=== PATIENT | female | born 1980 | race Caucasian/White ===

== ENCOUNTER 2019-11-04 14:51 | Emergency (ER) | payer MEDICAID, OTHER ==
[~2019-11-04] VITALS: Ht 157.5 cm; Wt 63.5 kg
[2019-11-04 17:59] VITALS: BP 124/80
[2019-11-04] MEDS ORDERED: cefTRIAXone W LIDOCAINE 1 GM IM IM ONE (18:30)
[2019-11-04] MEDS ORDERED: LIDOCAINE 2% (LOCAL ANESTH.) PF 5ml SDV ONE (18:39)
[2019-11-04] MEDS ORDERED: cefTRIAXone SOD 1,000 MG VL ONE (18:39)
[2019-11-04] MEDS ORDERED: ACETAMINOPHEN 500 MG TAB PO ONE ×2 (18:45)
== END 2019-11-04 18:57 | disposition home or self-care (01) ==
LOC: ER 14:51
DX: J01.40 Acute pansinusitis, unspecified (principal); J31.0 Chronic rhinitis; J34.2 Deviated nasal septum; N39.0 Urinary tract infection, site not specified; M26.69 Other specified disorders of temporomandibular joint; F17.210 Nicotine dependence, cigarettes, uncomplicated
CPT/HCPCS: 70486; 71045; 81002; 81025; 87070; 87804; 87880; 96372; 99285; J0696; J2001

== ENCOUNTER 2019-12-20 13:10 | Inpatient (IN) | payer MEDICAID ==
[~2019-12-20] VITALS: Ht 160 cm; Wt 86.2 kg
[2019-12-20] MEDS ORDERED: SODIUM CHLORIDE 0.9% 1,000 ML IVB ONE (13:25)
[2019-12-20] MEDS ORDERED: ACETAMINOPHEN 325 MG TAB PO ONE (13:30)
[2019-12-20 14:15] LABS: Basophils # (auto) 0 10 ^3/uL (0-0.2); Basophils % (auto) 0.1 % (0.0-2.0); Eosinophils # (auto) 0 10 ^3/uL (0-0.8); Eosinophils % (auto) 0.1 % (0.0-7.0); Hematocrit 39.5 % (36.0-46.0); Hemoglobin 13.2 g/dL (12.2-16.2); Lymphocytes % (auto) 3.8 % (10.0-50.0); Mean Corpuscular Hemoglobin 32.2 pg (28.0-32.0); Mean Corpuscular Hgb Conc. 33.4 g/dL (32.0-36.0); Mean Corpuscular Volume 96.3 fL (80.0-100.0); Monocytes # (auto) 1.8 10 ^3/uL (0-1.3); Monocytes % (auto) 7.2 % (0.0-12.0); Neutrophils # (auto) 22.9 10 ^3/uL (1.6-8.6); Neutrophils % (auto) 88.8 % (37.0-80.0); Nucleated Red Blood Cells % 0.1 %; Platelet Count (auto) 229 10^3/uL (140-450); Red Cell Distribution Width 13.7 % (11.8-14.3); White Blood Cell 25.8 10^3/uL (4.4-10.8)
[2019-12-20 14:27] LABS: Urine Bacteria MANY /hpf (None Seen); Urine Blood TRACE /uL (Negative); Urine Specific Gravity 1.011 (1.001-1.035); Urine WBC 110 /hpf (0 - 5); Urine WBC Clumps PRESENT /hpf (None Seen)
[2019-12-20 14:37] LABS: Albumin 3.4 g/dL (3.4-5.0); BUN/Creatinine Ratio 9.4; Calcium 8.4 mg/dL (8.5-10.1); Magnesium 1.6 mg/dL (1.6-2.6); Potassium 3.4 mmol/L (3.5-5.1)
[2019-12-20 14:40] LABS: Bilirubin, Total 1.7 mg/dL (0.2-1.0); Total Protein 8.3 g/dL (6.4-8.2)
[2019-12-20 14:44] LABS: INR 1.05 (0.9-1.15); Partial Thromboplastin Time 30.3 sec (23.64-32.05)
[2019-12-20] MEDS ORDERED: AZITHROMYCIN 500MG/ 250ML 250 ML IV ONE (15:30)
[2019-12-20] MEDS ORDERED: LORazepam 2MG/ML-1ML VIAL IV PRN (16:00)
[2019-12-20] MEDS ORDERED: MEROPENEM 500MG IVPB 50 ML IV ONE (16:00)
[2019-12-20] MEDS ORDERED: NITROGLYCERIN 0.4 MG SL TAB SL PRN ×2 (16:00→16:30)
[2019-12-20] MEDS ORDERED: MORPHINE SULF INJ 2 MG/ML SYRINGE 1ML IV PRN ×4 (16:00→16:45)
[2019-12-20] MEDS ORDERED: MORPHINE SULFATE 4 MG/ML SYR/VIAL IV PRN (16:00)
[2019-12-20] MEDS ORDERED: AZTREONAM 1GM INJ 1 GM in D5W 5% 50 ML IV ONE (16:00)
[2019-12-20] MEDS ORDERED: VANCOMYCIN PER PHARMACY 0 MG IV SCH (16:15)
[2019-12-20] MEDS ORDERED: ALUM & MAG HYDROX-SIMETH LIQ(MAALOX) 30 ML PO PRN (16:30)
[2019-12-20] MEDS ORDERED: METOCLOPRAMIDE HCL 5MG/ml INJ 2ml VIAL IV PRN (16:30)
[2019-12-20] MEDS ORDERED: DOCUSATE SOD 100 MG CAP PO PRN (16:30)
[2019-12-20] MEDS: SODIUM CHLORIDE 0.9% 1,000 ML IV SCH ×2 (17:04→21:21)
[2019-12-20] MEDS ORDERED: SODIUM CHLORIDE 0.9% 1,000 ML IV ONE (18:00)
[2019-12-20] MEDS ORDERED: HYDROCORTISONE SOD SUCC 100 MG/2ML INJ VIAL IV ONE (18:15)
[2019-12-20] MEDS ORDERED: VANCOMYCIN 1GM/250ML 250 ML IV ONE (19:00)
[2019-12-20] MEDS ORDERED: SODIUM CHLORIDE 0.9% 2,000 ML IV ONE (19:15)
[2019-12-20] MEDS: HYDROcodone-ACET 5/325MG TAB PO PRN (19:45)
--- NOTE | 2019-12-20 20:39 | NUR ---
Telemetry admit from ER LUISASCOOTER BRICENO admitted to Telemetry unit. SBAR have not been received. Patient oriented to Ori garnett RN, [facility], 284 room, b bed, and unit policies regarding patient care and visiting hours. Patient now on continuous telemetry monitoring, tele box # [id number] and telemetry reading on arrival to unit is sinus rhythm. Patient placed on bedside oxygen, weighed by bedscale and encouraged to call if they need something. All questions and concerns addressed, patient verbalized understanding. Addendum: 12/21/19 at 0357 by Ori Kebede RN belonging list completed and in chart.
[2019-12-20 21:00] VITALS: BP 99/69
[2019-12-20] MEDS ORDERED: OLAN20TA13 PO (21:20)
[2019-12-20] MEDS ORDERED: GABA100C9 PO (21:20)
[2019-12-20] MEDS: FAMOTIDINE (10MG/ML) 2ML VL IV SCH (21:22)
[2019-12-20] MEDS: MEROPENEM 1GM IVPB 100 ML IV SCH (21:23)
[2019-12-20] MEDS ORDERED: AZTREONAM 1GM INJ 1 GM in D5W 5% 50 ML IV SCH (22:00)
[2019-12-21] MEDS ORDERED: LORazepam 2MG/ML-1ML VIAL IV PRN (00:15)
[2019-12-21] MEDS: SODIUM CHLORIDE 0.9% 1,000 ML IV SCH ×6 (00:54→21:03)
[2019-12-21 05:00] VITALS: BP 96/71
[2019-12-21] MEDS: HYDROCORTISONE SOD SUCC 100 MG/2ML INJ VIAL IV SCH ×3 (05:07→18:22)
[2019-12-21 06:03] LABS: Basophils # (auto) 0 10 ^3/uL (0-0.2); Basophils % (auto) 0.2 % (0.0-2.0); Eosinophils # (auto) 0 10 ^3/uL (0-0.8); Eosinophils % (auto) 0.1 % (0.0-7.0); Hematocrit 31.5 % (36.0-46.0); Hemoglobin 10.7 g/dL (12.2-16.2); Lymphocytes # (auto) 0.9 10 ^3/uL (0.4-5.4); Lymphocytes % (auto) 4.7 % (10.0-50.0); Mean Corpuscular Hemoglobin 33.1 pg (28.0-32.0); Mean Corpuscular Volume 97.4 fL (80.0-100.0); Monocytes # (auto) 1.8 10 ^3/uL (0-1.3); Monocytes % (auto) 9.9 % (0.0-12.0); Neutrophils # (auto) 15.8 10 ^3/uL (1.6-8.6); Neutrophils % (auto) 85.1 % (37.0-80.0); Platelet Count (auto) 159 10^3/uL (140-450); Red Blood Cells 3.23 10^6/uL (4.0-5.20); Red Cell Distribution Width 13.5 % (11.8-14.3); White Blood Cell 18.5 10^3/uL (4.4-10.8)
[2019-12-21 06:18] LABS: Albumin 2.3 g/dL (3.4-5.0); Calcium 6.4 mg/dL (8.5-10.1); Potassium 4.2 mmol/L (3.5-5.1)
[2019-12-21 06:22] LABS: BUN/Creatinine Ratio 16.7; Bilirubin, Total 0.7 mg/dL (0.2-1.0); Magnesium 1.5 mg/dL (1.6-2.6); Total Protein 5.3 g/dL (6.4-8.2)
[2019-12-21 06:30] LABS: INR 1.11 (0.9-1.15); Partial Thromboplastin Time 33.7 sec (23.64-32.05)
[2019-12-21 06:38] VITALS: BP 100/69
--- NOTE | 2019-12-21 07:30 | NUR ---
OPENING SHIFT NOTES Assumed care of patient from overnight babysitter RN. Patient is alert and orientedx4, no signs of distress noted, patient denies pain. She was updated on the plan of care and verbalized understanding. Patient is on oxygen at 2L/min via nasal cannula, saturation is 97%. Bedside commode noted, patient states that she "feels weak when she walks too far". Patient was encouraged to call for assistance when she gets up to commode and she verbalized understanding. Bed is locked, in the lowest position, side rail up x2 and call light is in reach.
[2019-12-21 09:00] VITALS: BP 112/72
--- NOTE | 2019-12-21 09:30 | NUR ---
PATIENT TAKEN TO VQ SCAN Accompanied by tech, no signs of distress on departure.
--- NOTE | 2019-12-21 09:53 | NUR ---
PATIENT BACK FROM VQ SCAN No signs of distress noted. Patient placed back on Oxygen at 2L/min via nasal cannula, saturation 96%.
[2019-12-21] MEDS ORDERED: HYDROCORTISONE SOD SUCC 100 MG/2ML INJ VIAL IV SCH (10:00)
[2019-12-21] MEDS: MEROPENEM 1GM IVPB 100 ML IV SCH ×3 (10:06→22:21)
[2019-12-21] MEDS: ENOXAPARIN SOD 40 MG/0.4 ML SYRINGE SC SCH (10:06)
[2019-12-21] MEDS: FAMOTIDINE (10MG/ML) 2ML VL IV SCH (10:06)
[2019-12-21 12:38] VITALS: BP 127/60
--- NOTE | 2019-12-21 12:42 | NUR ---
JURGEN AT BEDSIDE Updated on patient status, plan of care discussed with patient and she verbalized understanding. No new orders received.
[2019-12-21] MEDS: KETOROLAC TROMETH 30 MG/ML 1ML VIAL IV PRN ×2 (13:05→22:22)
[2019-12-21] MEDS: VANCOMYCIN 750mg/250ml 250 ML IV SCH (13:05)
[2019-12-21 16:53] VITALS: BP 102/74
--- NOTE | 2019-12-21 20:00 | NUR ---
Opening Shift Note Assumed care of patient. Awake, alert and oriented x4. No S/S of distress/SOB or pain. Instructed on POC and to call for assist PRN. Bed locked, in lowest position, call light within reach, side rails up x2. Will continue to monitor for changes Q1hr and PRN.
[2019-12-21 23:04] VITALS: BP 119/79
[2019-12-22] MEDS: HYDROCORTISONE SOD SUCC 100 MG/2ML INJ VIAL IV SCH ×3 (00:03→14:22)
[2019-12-22] MEDS: LORazepam 0.5 MG TAB PO PRN (00:04)
[2019-12-22] MEDS: SODIUM CHLORIDE 0.9% 1,000 ML IV SCH ×3 (03:01→14:23)
[2019-12-22 05:16] VITALS: BP 116/85
[2019-12-22] MEDS: MEROPENEM 1GM IVPB 100 ML IV SCH ×3 (05:48→21:49)
--- NOTE | 2019-12-22 07:30 | NUR ---
Opening Shift Note Assumed care of patient, awake and alert. No S/S of distress/SOB or pain. Instructed on POC and to call for assist PRN, will continue to monitor for changes Q1hr and PRN.
[2019-12-22] MEDS: VANCOMYCIN 750mg/250ml 250 ML IV SCH (08:14)
[2019-12-22 08:18] LABS: Basophils # (auto) 0 10 ^3/uL (0-0.2); Basophils % (auto) 0.2 % (0.0-2.0); Eosinophils # (auto) 0 10 ^3/uL (0-0.8); Hematocrit 34.2 % (36.0-46.0); Hemoglobin 11.3 g/dL (12.2-16.2); Lymphocytes % (auto) 4.7 % (10.0-50.0); Mean Corpuscular Hemoglobin 31.8 pg (28.0-32.0); Mean Corpuscular Hgb Conc. 33.1 g/dL (32.0-36.0); Mean Corpuscular Volume 96.1 fL (80.0-100.0); Monocytes % (auto) 4.7 % (0.0-12.0); Neutrophils # (auto) 19.3 10 ^3/uL (1.6-8.6); Neutrophils % (auto) 90.4 % (37.0-80.0); Platelet Count (auto) 257 10^3/uL (140-450); Red Blood Cells 3.56 10^6/uL (4.0-5.20); Red Cell Distribution Width 13.2 % (11.8-14.3); White Blood Cell 21.4 10^3/uL (4.4-10.8)
[2019-12-22 08:36] LABS: Potassium 3.2 mmol/L (3.5-5.1)
[2019-12-22 08:43] LABS: Albumin 2.1 g/dL (3.4-5.0); BUN/Creatinine Ratio 22.4; Bilirubin, Total 0.3 mg/dL (0.2-1.0); Calcium 6.6 mg/dL (8.5-10.1); Total Protein 5.9 g/dL (6.4-8.2)
[2019-12-22 09:00] VITALS: BP 109/76
[2019-12-22] MEDS: FAMOTIDINE (10MG/ML) 2ML VL IV SCH (10:33)
[2019-12-22] MEDS: ENOXAPARIN SOD 40 MG/0.4 ML SYRINGE SC SCH (10:34)
--- NOTE | 2019-12-22 11:00 | NUR ---
IV insertion IV access obtained, via clean sterile technique by inserting 20 gauge catheter at right wrist after 2 attempts. IV secured properly. No trauma to site. Patient tolerated procedure well.
[2019-12-22] MEDS: HYDROcodone-ACET 5/325MG TAB PO PRN (11:33)
[2019-12-22 12:45] VITALS: BP 117/84
[2019-12-22] MEDS ORDERED: POTASSIUM CHLORIDE 40 MEQ, LIDOCAINE 1% (LOCAL ANESTH.) 4 ML in SODIUM CHL 0.9% 100 ML IV ONE (12:45)
--- NOTE | 2019-12-22 13:00 | NUR ---
Dr. Corina Sampson in to see patient as primary MD.
--- NOTE | 2019-12-22 14:05 | NUR ---
Renal US completed.
--- NOTE | 2019-12-22 16:06 | NUR ---
K-rider not available. Pharmacy informed, will mix and send up.
--- NOTE | 2019-12-22 16:36 | NUR ---
Patient states she does not want to take the Solucortef as she does not like the way it makes her feel. Page placed to Dr. Corina Sampson.
[2019-12-22 17:00] VITALS: BP 119/86
[2019-12-22 22:00] VITALS: BP 111/72
[2019-12-23] MEDS: VANCOMYCIN 750mg/250ml 250 ML IV SCH (00:41)
--- NOTE | 2019-12-23 03:08 | NUR ---
IV insertion IV access obtained, via clean sterile technique by inserting 20 gauge catheter at left hand after 2 attempts. IV secured properly. No trauma to site. Patient tolerated procedure well.
[2019-12-23 05:00] VITALS: BP 114/75
[2019-12-23] MEDS: MEROPENEM 1GM IVPB 100 ML IV SCH ×3 (05:40→21:37)
[2019-12-23] MEDS: SODIUM CHLORIDE 0.9% 1,000 ML IV SCH ×4 (05:40→20:00)
[2019-12-23] MEDS: LORazepam 0.5 MG TAB PO PRN (06:04)
--- NOTE | 2019-12-23 06:04 | NUR ---
Nursing Note Patient was starting to cough and having a hard time catching her breath. Sat pt up and placed oxygen at 2L and advised to take some slow deep breaths. Assessed O2 saturation at 96%. Patient asked for Ativan and it was given as ordered. Patients respirations improved and the coughing resolved. Will let day shift RN know of the coughing and to monitor for worsening symptoms. Will continue to monitor patient.
--- NOTE | 2019-12-23 07:12 | NUR ---
Closing Shift Note Endorsed care to day shift RN. No S/S of distress, SOB or pain noted. Pt is sitting up in bed with her nasal cannula on at 2L. Day shift RN was made aware of patients coughing
[2019-12-23 09:00] VITALS: BP 125/79
[2019-12-23 10:07] LABS: Basophils # (auto) 0 10 ^3/uL (0-0.2); Basophils % (auto) 0.2 % (0.0-2.0); Eosinophils # (auto) 0.1 10 ^3/uL (0-0.8); Eosinophils % (auto) 0.4 % (0.0-7.0); Hematocrit 33.1 % (36.0-46.0); Hemoglobin 11.1 g/dL (12.2-16.2); Lymphocytes # (auto) 1.9 10 ^3/uL (0.4-5.4); Mean Corpuscular Hemoglobin 31.8 pg (28.0-32.0); Mean Corpuscular Hgb Conc. 33.5 g/dL (32.0-36.0); Mean Corpuscular Volume 94.7 fL (80.0-100.0); Monocytes # (auto) 0.9 10 ^3/uL (0-1.3); Monocytes % (auto) 6.1 % (0.0-12.0); Neutrophils # (auto) 11.6 10 ^3/uL (1.6-8.6); Neutrophils % (auto) 80.3 % (37.0-80.0); Platelet Count (auto) 293 10^3/uL (140-450); Red Blood Cells 3.49 10^6/uL (4.0-5.20); Red Cell Distribution Width 13.6 % (11.8-14.3); White Blood Cell 14.4 10^3/uL (4.4-10.8)
[2019-12-23] MEDS: FAMOTIDINE (10MG/ML) 2ML VL IV SCH (10:15)
[2019-12-23] MEDS: ENOXAPARIN SOD 40 MG/0.4 ML SYRINGE SC SCH (10:15)
[2019-12-23 10:36] LABS: BUN/Creatinine Ratio 13.7; Calcium 7.2 mg/dL (8.5-10.1)
[2019-12-23 13:00] VITALS: BP 128/83
[2019-12-23] MEDS ORDERED: POTASSIUM CHLORIDE 40 MEQ, LIDOCAINE 1% (LOCAL ANESTH.) 4 ML in SODIUM CHL 0.9% 100 ML IV ONE (13:00)
--- NOTE | 2019-12-23 13:33 | NUR ---
Dr. Corina Sampson in to see patient as primary MD.
[2019-12-23 17:00] VITALS: BP 135/99
--- NOTE | 2019-12-23 19:50 | NUR ---
Vancomycin trough not available at this time, per lab trough should be ready in "about five minutes" Will have Vancomyacin administration time adjusted by pharmacy.
[2019-12-23] MEDS ORDERED: VANCOMYCIN 750mg/250ml 250 ML IV SCH (20:00)
--- NOTE | 2019-12-23 20:00 | NUR ---
Patient refusing all fluids and antibiotics at this time, states she "feels much better" and "would like to talk to the doctor tomorrow if I need to be on them". Patient made aware of MD's orders and risks, benefits, and side effects of antibiotic administration. Patient verbalized understanding, continuing to refuse. Will continue to monitor.
[2019-12-23] MEDS: POTASSIUM CHL 20 Meq TABLET PO SCH (21:38)
[2019-12-23 23:38] VITALS: BP 122/83
[2019-12-24] MEDS: MEROPENEM 1GM IVPB 100 ML IV SCH ×3 (05:12→21:28)
[2019-12-24 05:45] VITALS: BP 133/97
[2019-12-24 06:03] LABS: Hematocrit 33.3 % (36.0-46.0); Hemoglobin 11.4 g/dL (12.2-16.2); Mean Corpuscular Hemoglobin 32.1 pg (28.0-32.0); Mean Corpuscular Hgb Conc. 34.1 g/dL (32.0-36.0); Mean Corpuscular Volume 94.2 fL (80.0-100.0); Platelet Count (auto) 312 10^3/uL (140-450); Red Blood Cells 3.54 10^6/uL (4.0-5.20); Red Cell Distribution Width 13.7 % (11.8-14.3); White Blood Cell 12.1 10^3/uL (4.4-10.8)
[2019-12-24 06:24] LABS: Potassium 3.4 mmol/L (3.5-5.1)
[2019-12-24 06:35] LABS: Albumin 2.3 g/dL (3.4-5.0); Bilirubin, Total 0.6 mg/dL (0.2-1.0); Calcium 7.6 mg/dL (8.5-10.1); Total Protein 6.1 g/dL (6.4-8.2)
--- NOTE | 2019-12-24 06:36 | NUR ---
Closing Note Patient lying in bed, eyes closed, respirations even and unlabored, appears asleep. Patient awakens to name and touch. No s/s of distress. Bed in lowest locked position, side rails up x2, call light within reach. Will endorse care to dayshift RN.
[2019-12-24 06:59] LABS: Band Neutrophils % (manual) 0; Basophils % (manual) 0 (0.0-2.0); Blast Cells 0; Promyelocytes % 0; Reactive Lymphocytes 0
--- NOTE | 2019-12-24 07:30 | NUR ---
Opening Shift Note Assumed care of patient, awake and alert, sitting up in chair at bedside. No S/S of distress/SOB or pain. Updated on POC and instructed to call for assistance PRN. Bed locked in lowest position, side rails up x2, call light within reach. Will continue to monitor for changes Q1hr and PRN.
[2019-12-24 07:39] LABS: Eosinophils % (manual) 3 (0-7); Lymphocytes % (manual) 16 (10.0-50.0); Metamyelocytes % 1; Monocytes % (manual) 14 (0-12); Myelocytes % 5
[2019-12-24 09:00] VITALS: BP 126/80
[2019-12-24] MEDS: FAMOTIDINE (10MG/ML) 2ML VL IV SCH (09:17)
[2019-12-24] MEDS: ENOXAPARIN SOD 40 MG/0.4 ML SYRINGE SC SCH (09:17)
[2019-12-24] MEDS: POTASSIUM CHL 20 Meq TABLET PO SCH ×2 (09:17→21:28)
[2019-12-24] MEDS ORDERED: POTASSIUM CHLORIDE 20 MEQ, LIDOCAINE 1% (LOCAL ANESTH.) 2 ML in SODIUM CHL 0.9% 100 ML IV ONE (09:30)
[2019-12-24 13:00] VITALS: BP 135/91
[2019-12-24] MEDS: SODIUM CHLORIDE 0.9% 1,000 ML IV SCH (13:59)
[2019-12-24 16:45] VITALS: BP 127/92
[2019-12-24] MEDS: HYDROcodone-ACET 5/325MG TAB PO PRN (18:51)
--- NOTE | 2019-12-24 18:51 | NUR ---
Closing Shift Note No S/S of distress or SOB. Patient is sitting up in bed, respirations are even and unlabored. Will endorse care to noc shift RN
--- NOTE | 2019-12-24 19:30 | NUR ---
OPENING SHIFT NOTE: ASSUMED CARE OF PATIENT. PATIENT IS AWAKE, ALERT AND ORIENTED X 4. ON S/S OF SOB OR DISTRESS AND PATIENT DENIES PAIN. BED IS IN LOWEST LOCKED POSITION WITH TWO SIDE RAILS RAISED AND CALL SOLIS WITHIN REACH. INSTRUCTED ON POC AND ENCOURAGED TO USE CALL SOLIS FOR ASSISTANCE, ALL QUESTIONS AND CONCERNS ADDRESSED, PATIENT VERBALIZES UNDERSTANDING. WILL CONTINUE TO MONITOR Q1 HR AND PRN.
[2019-12-24 20:00] VITALS: BP 111/75
[2019-12-24 21:00] VITALS: BP 111/75
[2019-12-25] MEDS: SODIUM CHLORIDE 0.9% 1,000 ML IV SCH ×2 (01:00→10:41)
--- NOTE | 2019-12-25 01:00 | NUR ---
Fluids stopped. Patient requests her fluids be disconnected because she has to urinate too much and can't sleep. Education given regarding the importance of the ordered fluids. Will continue to monitor pt.
[2019-12-25 04:30] VITALS: BP 100/66
[2019-12-25] MEDS: MEROPENEM 1GM IVPB 100 ML IV SCH (05:49)
[2019-12-25 05:52] LABS: Hematocrit 33.6 % (36.0-46.0); Hemoglobin 11.5 g/dL (12.2-16.2); Mean Corpuscular Hgb Conc. 34.3 g/dL (32.0-36.0); Mean Corpuscular Volume 93.4 fL (80.0-100.0); Platelet Count (auto) 310 10^3/uL (140-450); Red Cell Distribution Width 13.8 % (11.8-14.3); White Blood Cell 10.9 10^3/uL (4.4-10.8)
[2019-12-25 06:19] LABS: Calcium 7.8 mg/dL (8.5-10.1); Potassium 3.4 mmol/L (3.5-5.1)
[2019-12-25 06:47] LABS: Band Neutrophils % (manual) 0; Basophils % (manual) 0 (0.0-2.0); Blast Cells 0; Promyelocytes % 0; Reactive Lymphocytes 0
[2019-12-25 07:11] LABS: Eosinophils % (manual) 6 (0-7); Lymphocytes % (manual) 19 (10.0-50.0); Metamyelocytes % 1; Monocytes % (manual) 14 (0-12); Myelocytes % 1
--- NOTE | 2019-12-25 07:25 | NUR ---
Opening Shift Note Assumed care of patient, awake and alert, sitting up in bed. No S/S of distress/SOB or pain. Updated on POC and instructed to call for assistance PRN. Bed locked in lowest position, side rails up x2, call light within reach. Will continue to monitor for changes Q1hr and PRN.
[2019-12-25 09:00] VITALS: BP 138/89
[2019-12-25] MEDS ORDERED: POTASSIUM CHL 20 Meq TABLET PO ONE (09:45)
[2019-12-25] MEDS: FAMOTIDINE (10MG/ML) 2ML VL IV SCH (09:50)
[2019-12-25] MEDS: ENOXAPARIN SOD 40 MG/0.4 ML SYRINGE SC SCH (09:50)
[2019-12-25] MEDS: POTASSIUM CHL 20 Meq TABLET PO SCH (09:50)
[2019-12-25 12:47] VITALS: BP 129/98
[2019-12-25 12:52] VITALS: BP 129/98
[2019-12-25] MEDS ORDERED: cefTRIAXone 1GM/50ML D5W 50 ML IV ONE (15:00)
--- NOTE | 2019-12-25 15:30 | NUR ---
Discharge home Discharge instructions given as ordered. Encourage to follow up with PMD as instructed. All questions and concerns addressed. Patient verbalized understanding. Medication reconciliation form completed and copy given to patient. IV removed with catheter intact, pressure dressing applied. Telemetry unit returned to ICU. Patient taken to vehicle via ambulation with all personal belongings, accompanied by staff. No distress noted at time of departure.
[2019-12-26] MEDS ORDERED: cefTRIAXone 1GM/50ML D5W 50 ML IV SCH (09:00)
== END 2019-12-25 15:30 | disposition home or self-care (01) | DRG 720 ==
LOC: ER 13:10 → EDBD 13:10 → TELE 13:11 → TELE-WESTW 20:39
PROVIDERS: ADMIT Hospitalist; ATTEND Internal Medicine
DX: A41.9 Sepsis, unspecified organism (principal); N17.0 Acute kidney failure with tubular necrosis; R65.21 Severe sepsis with septic shock; E44.0 Moderate protein-calorie malnutrition; N18.4 Chronic kidney disease, stage 4 (severe); N30.00 Acute cystitis without hematuria; J20.8 Acute bronchitis due to other specified organisms; Z03.818 Encounter for observation for suspected exposure to other biological agents ruled out; N10 Acute pyelonephritis; E87.6 Hypokalemia; F41.9 Anxiety disorder, unspecified; E86.0 Dehydration; Z68.33 Body mass index [BMI] 33.0-33.9, adult; F10.10 Alcohol abuse, uncomplicated; Y90.9 Presence of alcohol in blood, level not specified; F15.10 Other stimulant abuse, uncomplicated; Z98.51 Tubal ligation status; Z88.0 Allergy status to penicillin; Z88.1 Allergy status to other antibiotic agents; B96.20 Unspecified Escherichia coli [E. coli] as the cause of diseases classified elsewhere
CPT/HCPCS: 36415; 71045; 76775; 78582; 80048; 80053; 80202; 81001; 81025; 83605; 83735; 84100; 84484; 84702; 85007; 85025; 85027; 85379; 85610; 85730; 87040; 87070; 87086; 87088; 87186; 87804; 87880; G0378; J0696; J1885; J2001; J2185; J3490; J7060

== ENCOUNTER 2021-05-25 20:02 | Emergency (ER) | payer MEDICAID ==
[~2021-05-25] VITALS: Ht 157.5 cm; Wt 68.0 kg
[~2021-05-25 20:02] MED LIST: GABA100C9 PO; OLAN20TA PO
[2021-05-25 22:00] VITALS: BP 107/74
[2021-05-25 22:09] LABS: Basophils # (auto) 0.1 10 ^3/uL (0-0.2); Basophils % (auto) 1.3 % (0.0-2.0); Eosinophils # (auto) 0.1 10 ^3/uL (0-0.8); Eosinophils % (auto) 1.2 % (0.0-7.0); Hematocrit 37.4 % (36.0-46.0); Lymphocytes # (auto) 1.8 10 ^3/uL (0.4-5.4); Lymphocytes % (auto) 23.5 % (10.0-50.0); Mean Corpuscular Hemoglobin 32.6 pg (28.0-32.0); Mean Corpuscular Hgb Conc. 34.7 g/dL (32.0-36.0); Mean Corpuscular Volume 93.8 fL (80.0-100.0); Monocytes # (auto) 0.8 10 ^3/uL (0-1.3); Monocytes % (auto) 11.2 % (0.0-12.0); Neutrophils # (auto) 4.7 10 ^3/uL (1.6-8.6); Neutrophils % (auto) 62.8 % (37.0-80.0); Nucleated Red Blood Cells % 0.1 %; Red Blood Cells 3.98 10^6/uL (4.0-5.20); Red Cell Distribution Width 12.5 % (11.8-14.3); White Blood Cell 7.5 10^3/uL (4.4-10.8)
[2021-05-25 22:27] LABS: Albumin 2.9 g/dL (3.4-5.0); Calcium 7.8 mg/dL (8.5-10.1)
[2021-05-25 22:36] LABS: BUN/Creatinine Ratio 12.9; Bilirubin, Total 0.6 mg/dL (0.2-1.0); CRP High Sensitivity 3.98 mg/dL (< 0.3); Total Protein 7.2 g/dL (6.4-8.2)
[2021-05-25] MEDS ORDERED: METOCLOPRAMIDE HCL 5MG/ml INJ 2ml VIAL IV ONE (23:00)
[2021-05-25] MEDS ORDERED: DexAMETHasone SOD PHOS 10MG/1ML VIAL INJ IV ONE (23:00)
== END 2021-05-26 03:31 | disposition home or self-care (01) ==
LOC: EDUNIT# 20:02 → ER 20:02
DX: R06.02 Shortness of breath (principal); F41.9 Anxiety disorder, unspecified; F17.210 Nicotine dependence, cigarettes, uncomplicated; F15.10 Other stimulant abuse, uncomplicated; Z20.822 Contact with and (suspected) exposure to COVID-19; Z88.0 Allergy status to penicillin; Z88.1 Allergy status to other antibiotic agents
CPT/HCPCS: 36415; 71045; 80053; 82728; 83605; 85025; 85379; 86141; 87426; 96374; 96375; 99284; J1100; J2765

== ENCOUNTER 2022-10-16 18:55 | Emergency (ER) | payer MEDICAID ==
[~2022-10-16] VITALS: Ht 162.6 cm; Wt 63.6 kg
[2022-10-16] MEDS ORDERED: HALOPERIDOL LACTATE 5 MG/ML INJ VIAL IM ONE ×3 (19:30→19:45)
[2022-10-16] MEDS ORDERED: diphenhdrAMINE HCL 50 MG/1 ML VL ONE (19:52)
[2022-10-16] MEDS ORDERED: LORazepam 2MG/ML-1ML VIAL ONE (19:53)
[2022-10-16 19:54] LABS: Eosinophils # (auto) 0.1 10 ^3/uL (0-0.8); Eosinophils % (auto) 1.2 % (0.0-7.0); Hemoglobin 14.5 g/dL (12.2-16.2); Monocytes # (auto) 0.5 10 ^3/uL (0-1.3); Nucleated Red Blood Cells % 0.1 %
[2022-10-16 19:56] LABS: Basophils # (auto) 0.2 10 ^3/uL (0-0.2); Basophils % (auto) 1.3 % (0.0-2.0); Hematocrit 42.2 % (36.0-46.0); Lymphocytes # (auto) 3.2 10 ^3/uL (0.4-5.4); Lymphocytes % (auto) 28.1 % (10.0-50.0); Mean Corpuscular Hemoglobin 33.8 pg (28.0-32.0); Mean Corpuscular Hgb Conc. 34.4 g/dL (32.0-36.0); Mean Corpuscular Volume 98.4 fL (80.0-100.0); Monocytes % (auto) 4.6 % (0.0-12.0); Neutrophils # (auto) 7.3 10 ^3/uL (1.6-8.6); Neutrophils % (auto) 64.8 % (37.0-80.0); Red Blood Cells 4.29 10^6/uL (4.0-5.20); Red Cell Distribution Width 11.8 % (11.8-14.3); White Blood Cell 11.3 10^3/uL (4.4-10.8)
[2022-10-16] MEDS ORDERED: LORazepam 2MG/ML-1ML VIAL IM ONE (20:00)
[2022-10-16] MEDS ORDERED: diphenhdrAMINE HCL 50 MG/1 ML VL IM ONE (20:00)
[2022-10-16 20:03] LABS: Albumin 3.8 g/dL (3.4-5.0); BUN/Creatinine Ratio 14.1 (10.0-20.0); Calcium 8.6 mg/dL (8.5-10.1); Potassium 3.6 mmol/L (3.5-5.1)
[2022-10-16 20:05] LABS: Salicylate < 1.7 mg/dL (2.8-20.0)
[2022-10-16 20:07] LABS: Bilirubin, Total 0.8 mg/dL (0.2-1.0); Total Protein 7.7 g/dL (6.4-8.2)
[2022-10-16 20:09] LABS: Acetaminophen < 2.0 ug/mL (10-30)
[2022-10-16] MEDS ORDERED: SODIUM CHLORIDE 0.9% 1,000 ML IV ONE (20:30)
[2022-10-16] MEDS ORDERED: ONDANSETRON HCL 4 MG/2 ML VIAL IV PRN (20:30)
[2022-10-17 05:30] VITALS: BP 125/82
[2022-10-17] MEDS ORDERED: FOLIC ACID 1 MG, MULTIPLE VITAMIN 10 ML, MAGNESIUM SULF SDV 50% 8 MEQ, THIAMINE INJ 100... INJ SCH ×5 (12:00)
== END 2022-10-17 07:12 | disposition home or self-care (01) ==
LOC: EDBD 18:55 → ER 18:55
DX: F10.129 Alcohol abuse with intoxication, unspecified (principal); F17.210 Nicotine dependence, cigarettes, uncomplicated; F15.10 Other stimulant abuse, uncomplicated; F29 Unspecified psychosis not due to a substance or known physiological condition; Z88.0 Allergy status to penicillin; Z88.1 Allergy status to other antibiotic agents; Y90.8 Blood alcohol level of 240 mg/100 ml or more
CPT/HCPCS: 36415; 71045; 80053; 80320; 80329; 85025; 96360; 96361; 96372; 99285; J1200; J1630; J2060; J7030

== ENCOUNTER 2022-11-18 22:35 | Emergency (ER) | payer MEDICAID ==
[~2022-11-18] VITALS: Ht 157.5 cm; Wt 63.6 kg
[2022-11-18 23:42] LABS: Basophils # (auto) 0.1 10 ^3/uL (0-0.2); Eosinophils # (auto) 0 10 ^3/uL (0-0.8); Mean Corpuscular Hemoglobin 34.8 pg (28.0-32.0); Neutrophils % (auto) 59.5 % (37.0-80.0); Nucleated Red Blood Cells % 0.1 %; Red Cell Distribution Width 13.3 % (11.8-14.3)
[2022-11-18 23:44] LABS: Basophils % (auto) 0.8 % (0.0-2.0); Eosinophils % (auto) 0.3 % (0.0-7.0); Hemoglobin 14.4 g/dL (12.2-16.2); Lymphocytes # (auto) 3.7 10 ^3/uL (0.4-5.4); Lymphocytes % (auto) 34.2 % (10.0-50.0); Mean Corpuscular Hgb Conc. 34.4 g/dL (32.0-36.0); Mean Corpuscular Volume 101.1 fL (80.0-100.0); Monocytes # (auto) 0.6 10 ^3/uL (0-1.3); Monocytes % (auto) 5.2 % (0.0-12.0); Neutrophils # (auto) 6.4 10 ^3/uL (1.6-8.6); Red Blood Cells 4.15 10^6/uL (4.0-5.20); White Blood Cell 10.8 10^3/uL (4.4-10.8)
[2022-11-18 23:48] LABS: Albumin 4.1 g/dL (3.4-5.0); Calcium 8.5 mg/dL (8.5-10.1)
[2022-11-18 23:54] LABS: BUN/Creatinine Ratio 19.2 (10.0-20.0); Bilirubin, Total 0.8 mg/dL (0.2-1.0); Total Protein 7.4 g/dL (6.4-8.2)
[2022-11-19 00:26] VITALS: BP 141/81
== END 2022-11-19 00:45 ==
LOC: ER 22:35
DX: F29 Unspecified psychosis not due to a substance or known physiological condition (principal); R41.82 Altered mental status, unspecified; F17.210 Nicotine dependence, cigarettes, uncomplicated; F15.10 Other stimulant abuse, uncomplicated; Z88.0 Allergy status to penicillin; Z88.1 Allergy status to other antibiotic agents
CPT/HCPCS: 36415; 70450; 80053; 80320; 84484; 85025